=== PATIENT | male | born 1970 | race Caucasian/White ===

== ENCOUNTER 2021-11-12 05:05 | Emergency (ER) | payer MEDICAID, OTHER ==
[~2021-11-12] VITALS: Ht 180.3 cm; Wt 90.7 kg
[2021-11-12] MEDS ORDERED: ACETAMINOPHEN 325 MG TAB PO ONE (07:45)
[2021-11-12 08:49] LABS: Basophils # (auto) 0.1 10 ^3/uL (0-0.2); Basophils % (auto) 0.6 % (0.0-2.0); Eosinophils # (auto) 0.3 10 ^3/uL (0-0.8); Eosinophils % (auto) 3.4 % (0.0-7.0); Hematocrit 46.6 % (41.0-53.0); Hemoglobin 15.5 g/dL (13.5-17.5); Lymphocytes # (auto) 2.5 10 ^3/uL (0.4-5.4); Lymphocytes % (auto) 25.8 % (10.0-50.0); Mean Corpuscular Hemoglobin 29.1 pg (28.0-32.0); Mean Corpuscular Hgb Conc. 33.3 g/dL (32.0-36.0); Mean Corpuscular Volume 87.2 fL (80.0-100.0); Monocytes % (auto) 10.1 % (0.0-12.0); Neutrophils # (auto) 5.8 10 ^3/uL (1.6-8.6); Neutrophils % (auto) 60.1 % (37.0-80.0); Nucleated Red Blood Cells % 0.3 %; Red Blood Cells 5.34 10^6/uL (4.5-5.90); Red Cell Distribution Width 13.9 % (11.8-14.3); White Blood Cell 9.7 10^3/uL (4.4-10.8)
[2021-11-12 09:04] LABS: Urine Bacteria NONE SEEN /hpf (None Seen); Urine Blood Negative /uL (Negative); Urine Specific Gravity 1.019 (1.001-1.035); Urine WBC <1 /hpf (0 - 3)
[2021-11-12 09:07] LABS: Albumin 3.8 g/dL (3.4-5.0); Calcium 8.9 mg/dL (8.5-10.1); Potassium 5.2 mmol/L (3.5-5.1)
[2021-11-12 09:15] LABS: BUN/Creatinine Ratio 19.6; Bilirubin, Total 0.2 mg/dL (0.2-1.0); Total Protein 7.5 g/dL (6.4-8.2)
[2021-11-12] MEDS ORDERED: IOHEXOL 350 MG/ML 100ML IJ ONE (09:33)
[2021-11-12 10:49] VITALS: BP 129/85
[2021-11-12] MEDS ORDERED: TAM04C PO (11:18)
== END 2021-11-12 10:40 | disposition home or self-care (01) ==
LOC: ER 05:05
DX: Q63.1 Lobulated, fused and horseshoe kidney (principal); N20.0 Calculus of kidney; R74.8 Abnormal levels of other serum enzymes
CPT/HCPCS: 36415; 71260; 74177; 76775; 80053; 81001; 84484; 85025; 93005; 99285; Q9967

== ENCOUNTER → 2022-02-10 | Emergency (ER) | payer MEDICAID ==
[~2022-02-10] VITALS: Ht 180.3 cm; Wt 90.7 kg
[~2022-02-10] MED LIST: TAM04C PO
[2022-02-10 17:59] VITALS: BP 139/85
== END | disposition left against medical advice (07) ==
LOC: EDUNIT# 17:44 → ER 17:47 → EDBD 17:47
DX: M79.10 Myalgia, unspecified site (principal); R11.2 Nausea with vomiting, unspecified; Z20.822 Contact with and (suspected) exposure to COVID-19; Z53.21 Procedure and treatment not carried out due to patient leaving prior to being seen by health care provider
CPT/HCPCS: 36415

== ENCOUNTER 2022-04-09 08:16 | Emergency (ER) | payer MEDICAID ==
[~2022-04-09] VITALS: Ht 180.3 cm; Wt 84.4 kg
[2022-04-09 08:32] VITALS: BP 115/87
== END 2022-04-09 09:50 | disposition left against medical advice (07) ==
LOC: ER 08:16
DX: R31.9 Hematuria, unspecified (principal); Z53.21 Procedure and treatment not carried out due to patient leaving prior to being seen by health care provider